=== PATIENT | female | born 1950 | race Caucasian/White ===

== ENCOUNTER 2018-12-01 06:08 | Outpatient (CLI) | payer MEDICARE, MEDICAID ==
[~2018-12-01] VITALS: Ht 170.2 cm; Wt 72.1 kg
[2018-12-01] MEDS ORDERED: VITA400C60 PO (13:29)
[2018-12-01] MEDS ORDERED: GLUC1TAB29 PO (13:29)
[2018-12-01] MEDS ORDERED: VITA1CAP PO (13:29)
== END 2018-12-01 14:00 | disposition home or self-care (01) ==
LOC: PREOP 06:08
PROVIDERS: ATTEND Otolaryngology Otolaryngology/Facial Plastic Surgery
DX: Z01.818 Encounter for other preprocedural examination (principal)

== ENCOUNTER 2018-12-05 06:48 | Day surgery (SDC) | payer MEDICARE, MEDICAID ==
[~2018-12-05] VITALS: Ht 170.2 cm; Wt 72.1 kg
[~2018-12-05 06:48] MED LIST: GLUC1TAB29 PO; VITA1CAP PO; VITA400C60 PO
--- OUTSIDE RECORDS SUMMARY | 2018-12-05 06:51 | XMS REPORT ---
Author Author LUKE FRYE [facility] Address [address] [place] [address] Care Team Providers Care Wireless Watcher Name Role Phone UDAY LUKE Unavailable PROBLEMS No Known Problems ALLERGIES No Known Allergies ENCOUNTERS Encounter Location Date Diagnosis [facility] [id number] [place] [phone] 18 Aug, 2018 Skin abnormality L98.9 ; Muscle strain T14.8XXA and Acute vaginitis N76.0 [facility] [id number] [place] [phone] 18 Aug, 2018 Dental examination Z01.20 and Oral health maintenance status requiring routine preventive dental care K08.9 [facility] [id number] [place] [phone] 28 Jan, 2018 Encounter for other administrative examinations Z02.89 [facility] [address] [id number] [place] [phone] 14 Oct, 2017 [facility] [address] [id number] [place] [phone] 19 Aug, 2017 Family history of diabetes mellitus Z83.3 and General medical exam Z00.00 [facility] [id number] [place] [phone] 18 Aug, 2017 Encounter for routine dental examination Z01.20 [facility] [address] [id number] [place] [phone] 14 Dec, 2016 Plantar wart B07.0 [facility] [id number] [place] [phone] 10 Nov, 2016 Encounter for routine dental examination Z01.20 [facility] [address] [id number] [phone] May, Encounter for other administrative examinations Z02.89 [facility] [address] [id number][place] [phone] Apr, Visit for dental examination Z01.20 [facility] [id number][place] [id number] January, Encounter for other administrative examinations Z02.89 [facility] [id number][place] [phone] Dec, Encounter for dental examination Z01.20 [facility] [address] [id number][place] [phone] Aug, Encounter for other administrative examinations Z02.89 [facility] [id number] [place] [phone] Jun, Encounter for dental examination Z01.20 [facility] [address] [id number] [phone] May, [facility] [id number] [place] [phone] May, [facility] [id number] [place] [phone] May, [facility] [id number] [place] [phone] May, [facility] [id number][place] [phone] May, [facility] [id number] [place] [phone] May, [facility] [id number], [place] [phone] May, [facility] [id number] [place] [phone] May, [facility] [place] [address] [facility] [id number] [place] [phone] Apr, IMMUNIZATIONS No Known Immunizations SOCIAL HISTORY Never Assessed REASON FOR VISIT New provider visit RA Doty, Complains of vaginosis, Has spot on the right side of nose PLAN OF CARE Activity Details Follow Up prn Reason: VITAL SIGNS Height 67 in 2018-08-26 Weight 154.7 lbs 2018-08-26 Temperature 97.9 degrees Fahrenheit 2018-08-26 Heart Rate 65 bpm 2018-08-26 Respiratory Rate 18 2018-08-26 BMI 24.23 kg/m2 2018-08-26 Blood pressure systolic 118 mmHg 2018-08-26 Blood pressure diastolic 74 mmHg 2018-08-26 MEDICATIONS Medication Instructions Dosage Frequency Start Date End Date Duration Status Vitamin B Complex Active Cyclobenzaprine HCl 10 mg Orally one hour before bedtime 1 tablet as needed Aug, 10 days Active Vitamin Daily Active Vitamin E Active Flax Seed Oil Active Metronidazole 500 mg Orally Twice a day 1 tablet 12h Aug, 7 days Active RESULTS No Results PROCEDURES Procedure Date Ordered Result Body Site [facility] VISIT ESTABLISHED PATIENT Aug 26, 2018 INSTRUCTIONS MEDICATIONS ADMINISTERED No Known Medications MEDICAL (GENERAL) HISTORY Type Description Date Medical History Scarlet fever when younger Medical History Arthritis Surgical History section Surgical History Tubal
--- OUTSIDE RECORDS SUMMARY | 2018-12-05 06:51 | XMS REPORT ---
Author Author Janice Castro [facility] Address [address] [place], [place] [id number] Care Team Providers Care Box Lidder Name Role Phone Janice Castro PCP Unavailable Allergies and Adverse Reactions Name Reaction Notes No known drug allergy Plan of Treatment Planned Activity Comments Planned Date Planned Time Plan/Goal anterior left hip pain and left knee pain 07/25/2016 3:00 PM Medications Name Start Date Expiration Date SIG Comments betamethasone valerate 0.1 % topical ointment 05/04/2016 06/29/2016 apply a thin layer to the affected area(s) by topical route 2 times per day for 14 days Keflex 500 mg oral capsule 05/04/2016 05/14/2016 take 1 capsule (500 mg) by oral route every 12 hours for 10 days Problem List Not available. Vital Signs Date Time BP-Sys(mm[Hg] BP-Sofi(mm[Hg]) HR(bpm) RR(rpm) Temp WT HT HC BMI BSA BMI Percentile O2 Sat(%) 05/30/2016 5:03:00 PM 120 mmHg 80 mmHg 56 bpm 16 rpm 97.8 F 155.2 lbs 67 in 24.31 kg/m2 1.82 m2 96 % 05/04/2016 8:41:00 AM 116 mmHg 80 mmHg 68 bpm 16 rpm 98.8 F 158.5 lbs 67 in 24.8244 kg/m 1.8435 m 98 % Social History Name Description Comments Tobacco Never smoker Alcohol Use - Rare Denies illicit substance abuse History of Procedures Not available. Results Summary Not available. History Of Immunizations Not available. 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
--- OUTSIDE RECORDS SUMMARY | 2018-12-05 06:51 | XMS REPORT ---
Author Author Janice Castro [facility] Address [address] [place], [place] [phone] Care Team Providers Care Coil Winder Name Role Phone Janice Castro PCP Unavailable Allergies and Adverse Reactions Name Reaction Notes No known drug allergy Plan of Treatment Not available. Medications Active Name Start Date Estimated Completion Date SIG Comments betamethasone valerate 0.1 % [...] HC BMI BSA BMI Percentile O2 Sat(%) 05/04/2016 8:41:00 AM 116 mmHg 80 mmHg 68 bpm 16 rpm 98.8 F 158.5 lbs 67 in 24.82 kg/m2 1.84 m2 98 % Social History Name Description Comments Tobacco Never smoker Alcohol Use - Rare Denies illicit substance abuse History of Procedures Not available. Results Summary Not available. History Of Immunizations Not available. 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
--- OUTSIDE RECORDS SUMMARY | 2018-12-05 06:51 | XMS REPORT ---
Author Author Courtney Kessler [facility] Address [address] [place], [place] [phone] Care Team Providers Care Slot Machine Floor Person Name Role Phone Courtney Kessler PCP Unavailable Allergies and Adverse Reactions Name [...] HC BMI BSA BMI Percentile O2 Sat(%) 06/05/2017 10:03:00 AM 110 mmHg 80 mmHg 54 bpm 20 rpm 98.2 F 162.125 lbs 67 in 25.39 kg/m2 1.86 m2 99 % 05/30/2016 5:03:00 PM 120 mmHg 80 mmHg 56 bpm 16 rpm 97.8 F 155.2 lbs 67 in 24.3075 kg/m 1.8242 m 96 % 05/04/2016 8:41:00 AM 116 mmHg 80 mmHg 68 bpm 16 rpm 98.8 F 158.5 lbs 67 in 24.82 kg/m2 1.84 m2 98 % Social History Name Description Comments Tobacco Never smoker Alcohol Use - Rare Denies illicit substance abuse History of Procedures Date Ordered Description Order Status 06/05/2017 12:00 AM Benadryl 50mg Injection, [facility] Medicare Reviewed 06/05/2017 12:00 AM Toradol 30 Mg Injection, [facility] Medicare Reviewed 06/05/2017 12:00 AM THER/PROPH/DIAG INJ SC/IM Reviewed Results Summary Not available. History Of Immunizations Not available. 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 8:44AM Warts May 30 2016 5:06PM Hip pain Jul 13 2016 11:42AM Knee pain, left Jul 13 2016 11:42AM Hip pain, acute, left Jul 13 2016 11:42AM Episodic tension-type headache, not intractable Jun 05 2017 10:05AM Payers Insurance Name Company Name Plan Name Plan Number Policy Number Policy Group Number Start Date Medicare RHC Medicare RHC [id number] N/A Standard Life [employer] Life [id number] N/A Medicare Part A Medicare - Lab/Xray [id number] N/A BCBS [facility] [id number] Thursday, July 16, 2015 History of Encounters Visit Date Visit Type Provider 06/05/2017 Office visit Courtney Kessler APRN 07/13/2016 Office visit Janice Castro APRN 05/30/2016 Office visit Janice Castro APRN 05/04/2016 Office visit Janice Castro APRN
--- OUTSIDE RECORDS SUMMARY | 2018-12-05 06:51 | XMS REPORT | Clinical Summary ---
Author Author Admin, [facility] Organization All Address Unknown Phone Unavailable Allergies, Adverse Reactions, Alerts Allergy Name Reaction Description Start Date Severity Status Provider NKA Critical Active Enmanuel English MD Conditions or Problems Problem Name Problem Code Onset Date Status Entry Date Provider Comment Standard Description Annotate Hemorrhoids, internal, with bleeding 455.2 Active Enmanuel English MD Internal hemorrhoids with other complication Medication List Medication Instructions Start Date Stop Date Generic Name NDC Status Provider Patient Instruction ECHINACEA 125 MG ORAL CAPS 1 daily prn in winter time ECHINACEA 24262710430 Active DARREN Kincaid Active ADVANCED E 400 UNIT ORAL CAPS 1 daiy VITAMIN E-MISC [employer] 74323596882 Active DARREN Kincaid Active A THRU Z ADVANCED ORAL TABS 1 daily MULTIPLE VITAMINS- MINERALS 94733264754 Active DARREN Kincaid Active ADDAPRIN 200 MG ORAL TABS 1 every 6 hrs prn IBUPROFEN 22851868759 Active DARREN Kincaid Active FLAX SEED OIL 1000 MG ORAL CAPS 1 daily FLAXSEED (LINSEED) 44121955241 Active DARREN Kincaid Active BIOTIN 10 MG ORAL TABS 1 daily BIOTIN 80392082119 Active DARREN Kincaid Active B COMPLETE ORAL TABS 1 daily B SIKPVLL-ABLTRH-EO 29842321074 Active DARREN Kincaid Active Advance Directives Directive Description Start Date PERMISSION TO SHARE DURABLE POWER OF MINE CAR DISPATCHER FOR HEALTHCARE Vital Signs Date Name Value Unit Range Description blood pressure, diastolic - 8462-4 80 mm[Hg] BP gupta blood pressure, systolic - 8480-6 122 mm[Hg] BP sys height E&M - 8302-2 67 [in_us] Bdy height pulse rate E&M - 8867-4 60 /min Heart rate temperature E&M 98.1 [degF] Body temperature weight E&M - 3141-9 158 [lb_av] Weight Measured Encounters Code Encounter Date Provider Facility CPT-70008 Level 4 New Patient 10:48:19 NURSERY WORKER Enmanuel English MD [facility] CPT-27932 Level 3 New Patient 10:48:[address] [facility] Enmanuel English MD [facility]
--- OUTSIDE RECORDS SUMMARY | 2018-12-05 06:51 | XMS REPORT ---
Author Author Janice Castro [facility] Address [address] [place], [place] [phone] Care Team Providers Care Cutting Table Operator Name Role Phone Janice Castro PCP Unavailable Allergies and Adverse Reactions Name Reaction Notes No known drug allergy Plan of Treatment Not available. 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
--- OUTSIDE RECORDS SUMMARY | 2018-12-05 06:51 | XMS REPORT ---
Author Author SAMAN SALAS Organization [facility] Address [address] [place] [address] Care Team Providers Care Nicker And Breaker Name Role Phone JOSUE SAMAN Unavailable PROBLEMS No Known Problems ALLERGIES No Known Allergies ENCOUNTERS Encounter Location Date Diagnosis [facility] [id number] [place] [phone] 18 Aug, 2018 Skin abnormality L98.9 ; Muscle strain T14.8XXA and Acute vaginitis N76.0 [facility] [id number] [place] [phone] 18 Aug, 2018 Dental examination Z01.20 and Oral health maintenance status requiring routine preventive dental care K08.9 [facility] [id number] [place] [phone] 28 Jan, 2018 Encounter for other administrative examinations Z02.89 [facility] [id number] [place] [phone] 14 Oct, 2017 [facility] [id number] [place] [phone] 19 Aug, 2017 Family history of diabetes mellitus Z83.3 and General medical exam Z00.00 [facility] [id number] [place] [phone] 18 Aug, 2017 Encounter for routine dental examination Z01.20 [facility] [id number] [place] [phone] 14 Dec, 2016 Plantar wart B07.0 [facility] [id number] [place] [phone] 10 Nov, 2016 Encounter for routine dental examination Z01.20 [facility] [address] [id number] [phone] May, Encounter for other administrative examinations Z02.89 [facility] [address] [id number] [phone] Apr, Visit for dental examination Z01.20 [facility] [id number], [place] [phone] January, Encounter for other administrative examinations Z02.89 [facility] [id number], [place] [phone] Dec, Encounter for dental examination Z01.20 [facility] [address] [id number], [place] [phone] Aug, Encounter for other administrative examinations Z02.89 [facility] [id number] [place] [phone] Jun, Encounter for dental examination Z01.20 [facility] [id number] [place] [phone] May, [facility] [id number] [place] [phone] May, [facility] [id number] [place] [phone] May, [facility] [id number] [place] [phone] May, [facility] [id number], [place] [phone] May, [facility] [id number] [place] [phone] May, [facility] [id number] [place] [phone] May, [facility] [id number] [place] [phone] May, [facility] [place] [address] [facility] [id number] [place] [phone] Apr, IMMUNIZATIONS No Known Immunizations SOCIAL HISTORY Never Assessed REASON FOR VISIT VARINDER/Prophy/SVETLANAX. [email or web address] PLAN OF CARE Activity Details Follow Up 6 Months Reason: VITAL SIGNS Height 67 in 2018-08-26 Blood pressure systolic 117 mmHg 2018-08-26 Blood pressure diastolic 75 mmHg 2018-08-26 MEDICATIONS Medication Instructions Dosage Frequency Start Date End Date Duration Status Vitamin Daily Active Glucosamine Relief Not-Taking Flax Seed Oil Active Vitamin E Active Vitamin B Complex Active RESULTS No Results PROCEDURES Procedure Date Ordered Result Body Site PERIODIC ORAL EXAMINATION Aug 26, 2018 PROPHYLAXIS - ADULT Aug 26, 2018 TOPICAL FLUORIDE VARNISH Aug 26, 2018 BITEWINGS - THREE FILMS Aug 26, 2018 INSTRUCTIONS MEDICATIONS ADMINISTERED No Known Medications MEDICAL (GENERAL) HISTORY Type Description Date Medical History Scarlet fever when younger Medical History Arthritis Surgical History section Surgical History Tubal
--- OUTSIDE RECORDS SUMMARY | 2018-12-05 06:52 | XMS REPORT ---
Author Author MERARY DEAL [facility] Address [address] [place] [address] Care Team Providers Care Pile Driving Technician Name Role Phone MERARY DEAL Unavailable PROBLEMS Type Condition ICD9-CM Code SNB93-FS Code Onset Dates Condition Status SNOMED Code Problem Plantar wart B07.0 Active 14906046 Problem Encounter for routine dental examination Z01.20 Active 152523038 Problem Enlargement of lymph nodes 785.6 Active 89077874 Problem Routine general medical examination at health care facility V70.0 Active 588712843 Problem Visit for dental examination Z01.20 Active 631177817 Problem Viral warts, unspecified 078.10 Active 09005666 ALLERGIES Unknown Allergies SOCIAL HISTORY No smoking Hx information available PLAN OF CARE VITAL SIGNS MEDICATIONS Unknown Medications RESULTS No Results PROCEDURES Procedure Date Ordered Related Diagnosis Body Site Dental Prepay for Future Services February 06, 2016 IMMUNIZATIONS No Known Immunizations
--- OUTSIDE RECORDS SUMMARY | 2018-12-05 06:52 | XMS REPORT ---
Author Author MERARY DEAL [facility] Address [address] [place] [address] Care Team Providers Care Tool And Die Designer Name Role Phone MERARY DEAL Unavailable PROBLEMS Type Condition ICD9-CM Code [id number] Code Onset Dates Condition Status SNOMED Code Problem Plantar wart B07.0 Active 74158989 Problem Encounter for routine dental examination Z01.20 Active 454585296 Problem Enlargement of lymph nodes 785.6 Active 55242479 Problem Routine general medical examination at health care facility V70.0 Active 381131040 Problem Visit for dental examination Z01.20 Active 978943121 Problem Viral warts, unspecified 078.10 Active 32691873 ALLERGIES Unknown Allergies SOCIAL HISTORY No smoking Hx information available PLAN OF CARE VITAL SIGNS MEDICATIONS Unknown Medications RESULTS No Results PROCEDURES Procedure Date Ordered Related Diagnosis Body Site Dental Prepay for Future Services May 14, 2016 IMMUNIZATIONS No Known Immunizations
--- OUTSIDE RECORDS SUMMARY | 2018-12-05 06:52 | XMS REPORT ---
Author Author SAQIB ANNE Organization [employer] Address Unknown Phone Unavailable Care Team Providers Care Internet Technology Manager Name Role Phone SAQIB ANNE CP Unavailable Allergies, Adverse Reactions, Alerts Substance Reaction Event Type N.K.D.A. Info Not Available Non Drug Allergy Problems Problem Type Condition Code Onset Dates Condition Status Problem Routine general medical examination at health care facility V70.0 Active Problem Viral warts, unspecified 078.10 Active Problem Enlargement of lymph nodes 785.6 Active Assessment Encounter for dental examination Z01.20 Active Medications No Known Medications Procedures Procedure Coding System Code Date BITEWING - SINGLE FILM CPT-4 D0270 Jun 27, 2015 BITEWINGS - TWO FILMS CPT-4 D0272 Jun 27, 2015 PERIODIC ORAL EXAMINATION CPT-4 D0120 Jun 27, 2015 TOPICAL FLUORIDE VARNISH CPT-4 D1206 Jun 27, 2015 PROPHYLAXIS - ADULT CPT-4 D1110 Jun 27, 2015 Vital Signs Date/Time: Jun 27, 2015 Blood Pressure Diastolic 86 mmHg Blood Pressure Systolic 137 mmHg Cardiac Monitoring Heart Rate 74 bpm Results No Known Results Summary Purpose [employer] Submission
--- OUTSIDE RECORDS SUMMARY | 2018-12-05 06:52 | XMS REPORT ---
Author Author KATLIN Otoole Organization [facility] Address [address] [place] [address] Care Team Providers Care Valve Lapper Name Role Phone KATLIN Otoole Unavailable PROBLEMS Unknown Problems ALLERGIES No Known Allergies ENCOUNTERS Encounter Location Date Diagnosis [facility] [address] [place] [id number] [place] [address] January, [facility] [address] [place] [id number] [place] [address] Oct, [facility] [address] [place] [id number] [place] [address] Aug, Family history of diabetes mellitus Z83.3 and General medical exam Z00.00 [facility] [address] [id number] [address] 18 Aug, 2017 Encounter for routine dental examination Z01.20 [facility] [id number] [address] 14 Dec, 2016 Plantar wart B07.0 [facility] [address] [place] [id number] [address] 10 Nov, 2016 Encounter for routine dental examination Z01.20 [facility] [id number][place] [id number] 05 May, 2016 Encounter for other administrative examinations Z02.89 [facility] [address] [id number] [phone] Apr, Visit for dental examination Z01.20 [facility] [address] [id number] [phone] January, Encounter for other administrative examinations Z02.89 [place] [id number][place] [address] Dec, Encounter for dental examination Z01.20 [facility] [address] [id number] [phone] Aug, Encounter for other administrative examinations Z02.89 [place] [address] [place] [phone] Jun, Encounter for dental examination Z01.20 [facility] [id number] [place] [phone] May, [facility] [id number] [place] [phone] May, [facility] [id number] [place] [phone] May, [facility] [id number] [place] [phone] May, [place] [id number] [place] [phone] May, [facility] [id number] [place] [address] May, [address]00565100[place] [phone] May, [facility] [id number] [place] [phone] May, [place] [id number] [place] [phone] Apr, IMMUNIZATIONS No Known Immunizations SOCIAL HISTORY Never Assessed REASON FOR VISIT Establish Care BRITTNEY Benavidez, PHQ2 PLAN OF CARE Activity Details Follow Up referral to Dr. Raymond thomson dr Reason: VITAL SIGNS Height 67 in 2017-08-27 Weight 159 lbs 2017-08-27 Temperature 98.2 degrees Fahrenheit 2017-08-27 Heart Rate 78 bpm 2017-08-27 Respiratory Rate 16 2017-08-27 BMI 24.90 kg/m2 2017-08-27 Blood pressure systolic 122 mmHg 2017-08-27 Blood pressure diastolic 78 mmHg 2017-08-27 MEDICATIONS Medication Instructions Dosage Frequency Start Date End Date Duration Status Flax Seed Oil Active Vitamin E Active Vitamin B Complex Active Vitamin Daily Active Glucosamine Relief Not-Taking RESULTS Name Result Date Reference Range A1C (IN HOUSE) 2017-08-27 A1C IN HOUSE 5.6 4.3 - 5.6 % Previous A1c n/a Lot [id number] Exp date 04/27 PROCEDURES Procedure Date Ordered Result Body Site GLYCATED HEMOGLOBIN TEST Aug 27, 2017 INSTRUCTIONS MEDICATIONS ADMINISTERED No Known Medications MEDICAL (GENERAL) HISTORY Type Description Date Medical History Scarlet fever when younger Medical History Arthritis
--- OUTSIDE RECORDS SUMMARY | 2018-12-05 06:52 | XMS REPORT | Continuity of Care Document ---
Author Author [facility] Organization [facility] Address Unknown Phone Unavailable Allergies There is no data. Medications There is no data. Problems Date Dx Coded Attending Type Code Diagnosis Diagnosed By 05/05/2013 078.10 WARTS 05/05/2013 078.10 WARTS 05/05/2013 078.10 WARTS 05/05/2013 NABIL RIVERA, LESLY 078.10 WARTS 05/14/2014 NABIL RIVERA, LESLY 785.6 Lymph Nodes Enlarged 05/14/2014 NABIL RIVERA, LESLY V70.0 NORMAL ROUTINE HISTORY AND PHYSICAL Procedures Code Description [place] [address] BMP 05/14/2014 78308 LIPID PANEL 05/14/2014 83301 CBC NO 5 PART DIFFERENTIAL 05/14/2014 75446 ROUTINE VENIPUNCTURE 05/14/2014 Results There is no data. Encounters ACCT No. Visit Date/Time Discharge Status Pt. Type Provider Facility Loc./Unit Complaint [id number] 09/12/2015 14:01:16 ACT Unknown [id number] 06/05/2017 10:48:16 06/05/2017 23:59:59 CLS Outpatient Courtney Kessler [id number] 05/30/2016 16:13:55 05/30/2016 23:59:59 CLS Outpatient Janice Castro [id number] 05/04/2016 09:26:04 05/04/2016 23:59:59 CLS Outpatient Janice Castro [id number] 11/17/2018 11:00:00 11/17/2018 23:59:59 CLS Outpatient ALLAN JOAQUIN LAC [facility] [id number] 05/14/2014 00:00:00 05/14/2014 23:59:59 CLS Outpatient NABIL RIVERA, LESLY [id number] 05/22/2013 08:17:00 Document Registration [id number] 05/19/2013 14:43:00 Document Registration [id number] 05/05/2013 13:16:00 Document Registration
--- OUTSIDE RECORDS SUMMARY | 2018-12-05 06:52 | XMS REPORT ---
Author Author YARELI LOPEZ [facility] Address [address] [place] [address] Care Team Providers Care Inspector Integrated [employer] Name Role Phone YARELI LOPEZ Unavailable PROBLEMS Unknown Problems ALLERGIES No Information ENCOUNTERS Encounter Location Date Diagnosis [facility] [id number], [place] [address] January, [facility] [address] [place] [id number], [place] [address] Oct, [facility] [address] [place] [id number], [place] [address] Aug, Family history of diabetes mellitus Z83.3 and General medical exam Z00.00 [facility] [id number], [place] [address] 18 Aug, 2017 Encounter for routine dental examination Z01.20 [facility] [id number], [place] [address] 14 Dec, 2016 Plantar wart B07.0 [facility] [id number], [place] [address] 10 Nov, 2016 Encounter for routine dental examination Z01.[address] [facility] [id number], [place] [phone] May, Encounter for other administrative examinations Z02.89 [facility] [id number], [place] [phone] Apr, Visit for dental examination Z01.[address] [facility] [id number], [place] [phone] January, Encounter for other administrative examinations Z02.[address] [facility] [id number], [place] [phone] Dec, Encounter for dental examination Z01.20 [facility] [id number], [place] [phone] Aug, Encounter for other administrative examinations Z02.[address] [facility] [id number], [place] [phone] Jun, Encounter for dental examination Z01.20 [facility] [address]00565100[place] [address] May, [facility] [id number] [place] [phone] May, [facility] [id number] [place] [phone] May, [facility] [id number] [place] [address] [phone] May, [facility] [id number], [place] [phone] May, [facility] [id number] [place] [phone] May, [facility] [id number], [place] [phone] May, [facility] [address]00565100[place] [phone] May, [facility] [id number], [place] [phone] Apr, IMMUNIZATIONS No Known Immunizations SOCIAL HISTORY Never Assessed REASON FOR VISIT Eye Refund PLAN OF CARE VITAL SIGNS MEDICATIONS Unknown Medications RESULTS No Results PROCEDURES No Known procedures INSTRUCTIONS MEDICATIONS ADMINISTERED No Known Medications MEDICAL (GENERAL) HISTORY Type Description Date Medical History Scarlet fever when younger Medical History Arthritis
--- OUTSIDE RECORDS SUMMARY | 2018-12-05 06:52 | XMS REPORT ---
Author Author SAQIB ANNE Organization [facility] Address Unknown Phone Unavailable Care Team Providers Care Tack Picker Name Role Phone SAQIB ANNE Unavailable Unavailable PROBLEMS Unknown Problems ALLERGIES No Information ENCOUNTERS Encounter Location Date Diagnosis [facility] [id number], [place] [address] January, Encounter for other administrative examinations Z02.89 [facility] [address] [place] [id number] [place] [address] 14 Oct, 2017 [facility] [address] [place] [id number] [place] [address] Aug, Family history of diabetes mellitus Z83.3 and General medical exam Z00.00 [facility] [address] [place] [id number], [place] [address] 18 Aug, 2017 Encounter for routine dental examination Z01.20 [facility] [id number], [place] [address] 14 Dec, 2016 Plantar wart B07.0 [facility] [id number], [place] [address] 10 Nov, 2016 Encounter for routine dental examination Z01.20 [facility] [id number], [place] [phone] May, Encounter for other administrative examinations Z02.89 [place] [address] [place] [address] [id number], [place] [address] Apr, Visit for dental examination Z01.20 [facility] [address] [id number], [place] [phone] January, Encounter for other administrative examinations Z02.89 [facility] [id number], [place] [phone] Dec, Encounter for dental examination Z01.20 [facility] [id number], [place] [phone] Aug, Encounter for other administrative examinations Z02.89 [facility] [id number], [place] [phone] Jun, Encounter for dental examination Z01.20 [facility] [address]00565100[place], [place] [address] May, 2013 [facility] [id number] [place] [phone]- [phone] May, [facility] [address]00565100[place], [place] [address] May, 2013 [facility] [address]00565100[place], [place] [address] May, 2013 [facility] [id number], [place] [phone] May, [facility] [address]00565100[place], [place] [address] May, [facility] [id number], [place] [phone] May, [facility] [address]00565100[place], [place] [phone]- [address] May, [facility] [address]00565100[place], [place] [phone] Apr, IMMUNIZATIONS No Known Immunizations SOCIAL HISTORY Never Assessed REASON FOR VISIT 3 [facility] PLAN OF CARE VITAL SIGNS MEDICATIONS Unknown Medications RESULTS No Results PROCEDURES Procedure Date Ordered Result Body Site Dental Prepay for Future Services February 03, 2018 INSTRUCTIONS MEDICATIONS ADMINISTERED No Known Medications MEDICAL (GENERAL) HISTORY Type Description Date Medical History Scarlet fever when younger Medical History Arthritis
--- OUTSIDE RECORDS SUMMARY | 2018-12-05 06:52 | XMS REPORT ---
Author Author MERARY DEAL [facility] Address [address] [place] [address] Care Team Providers Care Driver Salesman Name Role Phone MERARY DEAL Unavailable PROBLEMS Type Condition ICD9-CM Code AEX63-CP Code Onset Dates Condition Status SNOMED Code Problem Plantar wart B07.0 Active 66701152 Problem Encounter for routine dental examination Z01.20 Active 292468989 Problem Enlargement of lymph nodes 785.6 Active 47570022 Problem Routine general medical examination at health care facility V70.0 Active 342175815 Problem Visit for dental examination Z01.20 Active 278204126 Problem Viral warts, unspecified 078.10 Active 83941302 ALLERGIES Unknown Allergies SOCIAL HISTORY No smoking Hx information available PLAN OF CARE VITAL SIGNS MEDICATIONS Unknown Medications RESULTS No Results PROCEDURES Procedure Date Ordered Related Diagnosis Body Site Dental Prepay for Future Services Sep 02, 2015 IMMUNIZATIONS No Known Immunizations
--- OUTSIDE RECORDS SUMMARY | 2018-12-05 06:52 | XMS REPORT ---
Author Author MERARY DEAL [facility] Address [address] [place] [address] Care Team Providers Care Dispatcher Tugboat Name Role Phone MERARY DEAL Unavailable PROBLEMS Unknown Problems ALLERGIES No Known Allergies ENCOUNTERS Encounter Location Date Diagnosis [facility] [address] [place] [id number] [place] [address] January, [facility] [address] [place] [id number] [place] [address] 14 Oct, 2017 [facility] [address] [place] [id number] [place] [address] Aug, Family history of diabetes mellitus Z83.3 and General medical exam Z00.00 [facility] [id number] [address] 18 Aug, 2017 Encounter for routine dental examination Z01.20 [facility] [id number] [place] [address] 14 Dec, 2016 Plantar wart B07.0 [facility] [address] [place] [id number] [place] [address] 10 Nov, 2016 Encounter for routine dental examination Z01.20 [facility] [id number] RIVER[place] [phone] May, Encounter for other administrative examinations Z02.89 [facility] [address] [id number] [phone] Apr, Visit for dental examination Z01.20 [facility] [address] [id number] [phone] January, Encounter for other administrative examinations Z02.89 [facility] [id number] RIVER, [place] [phone] Dec, Encounter for dental examination Z01.20 [facility] [id number] [place]IVER[place] [address] Aug, Encounter for other administrative examinations Z02.89 [place] [address] [id number] [phone] Jun, Encounter for dental examination Z01.20 [facility] [address] [id number], [place] [phone]- [address] May, [facility] [id number] [place] [address] May, [facility] [id number] [place] [address]- [address] May, [facility] [id number] [place] [address]- [address] May, [facility] [id number] RIVER, [place] [phone] May, [facility] [id number] [place] [address] May, [address]00565100[place] [phone] May, [facility] [id number] [place] [phone] May, [address]00565100[place] [phone] Apr, IMMUNIZATIONS No Known Immunizations SOCIAL HISTORY Never Assessed REASON FOR VISIT 3 mo recall PLAN OF CARE Activity Details Follow Up 6 Months recare Reason: VITAL SIGNS MEDICATIONS Medication Instructions Dosage Frequency Start Date End Date Duration Status Vitamin Daily Active Glucosamine Relief Active Flax Seed Oil Active Vitamin E Active Vitamin B Complex Active RESULTS No Results PROCEDURES Procedure Date Ordered Result Body Site PERIODIC ORAL EXAMINATION Aug 26, 2017 PROPHYLAXIS - ADULT Aug 26, 2017 INSTRUCTIONS MEDICATIONS ADMINISTERED No Known Medications MEDICAL (GENERAL) HISTORY Type Description Date Medical History Scarlet fever when younger Medical History Arthritis
--- OUTSIDE RECORDS SUMMARY | 2018-12-05 06:52 | XMS REPORT ---
Author Author MERARY DEAL [facility] Address [address] [place] [address] Care Team Providers Care Sales Development Associate Name Role Phone MERARY DEAL Unavailable PROBLEMS Type Condition ICD9-CM Code QKK52-XY Code Onset Dates Condition Status SNOMED Code Problem Plantar wart B07.0 Active 44981837 Problem Encounter for routine dental examination Z01.20 Active 697804398 Problem Enlargement of lymph nodes 785.6 Active 43535879 Problem Routine general medical examination at health care facility V70.0 Active 501873179 Problem Visit for dental examination Z01.20 Active 580806166 Problem Viral warts, unspecified 078.10 Active 11632537 ALLERGIES No Known Allergies SOCIAL HISTORY Never Assessed PLAN OF CARE Activity Details Follow Up 3 Months Reason: VITAL SIGNS Heart Rate 66 bpm 2016-11-16 Blood pressure systolic 134 mmHg 2016-11-16 Blood pressure diastolic 79 mmHg 2016-11-16 MEDICATIONS Medication Instructions Dosage Frequency Start Date End Date Duration Status Vitamin Daily Active Glucosamine Relief Active Flax Seed Oil Active Vitamin E Active Vitamin B Complex Active RESULTS No Results PROCEDURES Procedure Date Ordered Result Body Site PERIODIC ORAL EXAMINATION November 16, 2016 PROPHYLAXIS - ADULT November 16, 2016 Billing Notes on claim November 16, 2016 BITEWINGS - THREE FILMS November 16, 2016 IMMUNIZATIONS No Known Immunizations MEDICAL (GENERAL) HISTORY Type Description Date Medical History Scarlet fever when younger Medical History Arthritis
--- OUTSIDE RECORDS SUMMARY | 2018-12-05 06:52 | XMS REPORT ---
Author Author BRANDY BARDALES [facility] Address [address] [place] [address] Care Team Providers Care Associate Professor Of Media Arts Name Role Phone BRANDY BARDALES Unavailable PROBLEMS Type Condition ICD9-CM Code BGR88-KV Code Onset Dates Condition Status SNOMED Code Problem Plantar wart B07.0 Active 07068629 Problem Encounter for routine dental examination Z01.20 Active 598976571 Problem Enlargement of lymph nodes 785.6 Active 63821293 Problem Routine general medical examination at health care facility V70.0 Active 275278527 Problem Visit for dental examination Z01.20 Active 388134716 Problem Viral warts, unspecified 078.10 Active 68486765 ALLERGIES No Known Allergies SOCIAL HISTORY Never Assessed PLAN OF CARE Activity Details Follow Up Procedure on my schedule protored by Dr. Lopez Reason:wart VITAL SIGNS Height 67 in 2016-12-21 Weight 163.7 lbs 2016-12-21 Temperature 98.3 degrees Fahrenheit 2016-12-21 Heart Rate 78 bpm 2016-12-21 Respiratory Rate 16 2016-12-21 BMI 25.64 kg/m2 2016-12-21 Blood pressure systolic 128 mmHg 2016-12-21 Blood pressure diastolic 88 mmHg 2016-12-21 MEDICATIONS Medication Instructions Dosage Frequency Start Date End Date Duration Status Glucosamine Relief Active Vitamin B Complex Active Vitamin Daily Active Vitamin E Active Flax Seed Oil Active RESULTS No Results PROCEDURES No Known procedures IMMUNIZATIONS No Known Immunizations MEDICAL (GENERAL) HISTORY Type Description Date Medical History Scarlet fever when younger Medical History Arthritis
[2018-12-05] MEDS ORDERED: MUPIROCIN 2% OINT 22 GM (BACTROBAN) TUBE ONE (07:07)
[2018-12-05] MEDS ORDERED: LIDOCAINE/EPI 1%-1:100,000 (XYLOCAINE) 20ML ONE (07:07)
[2018-12-05] MEDS ORDERED: fentaNYL INJECTION 100 MCG/2 ML AMP ONE (07:16)
[2018-12-05] MEDS ORDERED: MIDAZOLAM 2 MG/2 ML (VERSED) VIAL ONE (07:16)
[2018-12-05 07:30] VITALS: BP 133/79
[2018-12-05] MEDS: LACTATED RINGERS 1,000 ML IV PRN ×2 (07:30→08:39)
--- NOTE | 2018-12-05 07:43 | Progress Note-Pre Operative ---
Pre-Operative Progress Note H&P Reviewed The H&P was reviewed, patient examined and no changes noted. Date Seen by Provider: Dec 05, 2018 Time Seen by Provider: 07:30 Date H&P Reviewed: Dec 05, 2018 Time H&P Reviewed: :30 Pre-Operative Diagnosis: Right Nasal Lesion JACQUELINE SIMONS MD Dec 05, 2018 07:43
[2018-12-05] MEDS ORDERED: DEXAMETHASONE 10 MG/ML (DECADRON) 1 ML VIAL ONE (07:56)
[2018-12-05] MEDS ORDERED: SEVOFLURANE (ULTANE) 15 ML INHAL SOLN ONE ×4 (07:56→08:55)
[2018-12-05] MEDS ORDERED: LIDOCAINE PF 2% 5 ML (XYLOCAINE) VIAL ONE (07:56)
[2018-12-05] MEDS ORDERED: proPOfol 200 MG/20 ML (DIPRIVAN) VIAL IV ONE (07:56)
[2018-12-05] MEDS ORDERED: ONDANSETRON 4 MG/2 ML (SDV) Z0FRAN ONE (07:56)
[2018-12-05] MEDS ORDERED: BSS 15 ML ONE (08:43)
--- NOTE | 2018-12-05 08:57 | Progress Note-Post Operative ---
Post-Operative Progess Note Surgeon (s)/Sampler Tester (s) Surgeon JACQUELINE SIMONS MD Sampler Tester n/a Pre-Operative Diagnosis Right Nasal Lesion Post-Operative Diagnosis same Post-Op Procedure Note Date of Procedure: Dec 05, 2018 Name of Procedure Performed: Excision of Right Nasal Alar Lesion with FTSG reconstruction, donor site right neck Description & Findings Description and Findings: n/a Anesthesia Type lma Estimated Blood Loss minimal Packing none. Specimen(s) collected/removed right nasal lesion-margins clear JACQUELINE SIMONS MD Dec 05, 2018 08:57
[2018-12-05] MEDS ORDERED: ACETAMINOPHEN 325 MG TABLET PO PRN (09:00)
[2018-12-05] MEDS ORDERED: HYDROcodone/APAP 5 MG/325 MG (LORTAB) TAB PO PRN (09:00)
[2018-12-05] MEDS ORDERED: morphine INJ 10 MG/ML 1ML (SYR OR VIAL) IVP ONE (09:00)
[2018-12-05] MEDS ORDERED: ONDANSETRON 4 MG/2 ML (SDV) Z0FRAN IVP PRN (09:00)
[2018-12-05] MEDS ORDERED: morphine INJ 10 MG/ML 1ML (SYR OR VIAL) ONE (09:04)
[2018-12-05 09:35] VITALS: BP 122/71
[2018-12-05] MEDS ORDERED: ACHD5005 PO (09:39)
[2018-12-05] MEDS ORDERED: CEPH-507 PO (09:39)
[2018-12-05 10:05] VITALS: BP 113/62
[2018-12-05 10:35] VITALS: BP 109/59
[2018-12-05 10:45] VITALS: BP 109/59
--- NOTE | 2018-12-05 13:43 | Anesthesia-General Post-Op ---
General Patient Condition Mental Status/LOC: Same as Preop Cardiovascular: Satisfactory Nausea/Vomiting: Absent Respiratory: Satisfactory Pain: Controlled Complications: Absent Post Op Complications Complications None Follow Up Care/Instructions Patient Instructions None needed. Anesthesia/Patient Condition Patient Condition Patient is doing well, no complaints, stable vital signs, no apparent adverse anesthesia problems. No complications reported per nursing. OLLIE OLIVO CRNA Dec 05, 2018 13:43
== END 2018-12-05 10:45 | disposition home or self-care (01) ==
LOC: SDC 06:48
PROVIDERS: ATTEND Otolaryngology Otolaryngology/Facial Plastic Surgery
DX: C44.311 Basal cell carcinoma of skin of nose (principal); F17.210 Nicotine dependence, cigarettes, uncomplicated
CPT/HCPCS: 87081